=== PATIENT | female | born 1980 | race Two or more races ===

== ENCOUNTER 2016-11-14 11:10 | Inpatient (IN) | payer MEDICAID ==
[~2016-11-14] VITALS: Ht 154.9 cm; Wt 113.9 kg
[2016-11-14] VITALS (19 sets, daily range): BP systolic 84–127; BP diastolic 42–76
[2016-11-14 12:25] LABS: DEFINITIVE VIEW TRANSMISSION; Hemoglobin 11.9 g/dL (12.2-16.2); Mean Corpuscular Hemoglobin 26.4 pg (28.0-32.0); Mean Corpuscular Hgb Conc. 32.2 g/dL (32.0-36.0); Mean Corpuscular Volume 82.2 fL (80.0-100.0); Mean Platelet Volume 7.8 fL (7.4-10.4); Platelet Count (auto) 405 10^3/uL (140-450); Red Cell Distribution Width 14.7 % (11.6-16.0); SUSPECT VIEW TRANSMISSION; White Blood Cell 26.5 10^3/uL (4.4-10.8)
[2016-11-14 12:39] LABS: Metamyelocytes % 0; Myelocytes % 0; Promyelocytes % 0; Reactive Lymphocytes 0
[2016-11-14 12:39] LABS: Urine Bilirubin Negative (Negative); Urine Blood Negative /uL (Negative); Urine Color Yellow (Yellow); Urine Glucose Normal (Normal); Urine Hyaline Cast FEW /lpf (0 - 2); Urine Ketone Negative (Negative); Urine Mucus FEW (None Seen); Urine Nitrite Negative (Negative); Urine RBC 2 /hpf (0 - 4); Urine Squamous Epithelial Cell FEW /hpf (<5); Urine Urobilinogen Normal (Negative)
[2016-11-14 12:42] LABS: Albumin 3.4 g/dL (3.4-5.0); BUN/Creatinine Ratio 10.2; Bilirubin, Total 0.9 mg/dL (0.2-1.0); Calcium 8.4 mg/dL (8.5-10.1); Total Protein 8.1 g/dL (6.4-8.2)
[2016-11-14 12:46] LABS: Potassium 2.9 mmol/L (3.5-5.1)
[2016-11-14] MEDS ORDERED: SODIUM CHLORIDE 0.9% 1,000 ML IVB ONE (12:54)
[2016-11-14] MEDS ORDERED: PANTOPRAZOLE SODIUM 40 MG/10 ML VIAL IV ONE (13:00)
[2016-11-14] MEDS ORDERED: HYDROmorphone HCL 2 MG/ML VL IV ONE (13:00)
[2016-11-14] MEDS ORDERED: cefTRIAXone 1GM/50ML D5W 50 ML IV ONE (13:00)
[2016-11-14] MEDS ORDERED: POTASSIUM CHL 10% (20 MEQ/15ML) ORAL SOLN PO ONE (13:00)
[2016-11-14] MEDS ORDERED: LEVOFLOXACIN 750MG 150 ML IV ONE (13:00)
[2016-11-14] MEDS ORDERED: ONDANSETRON HCL 4 MG/2 ML VIAL IV ONE (13:00)
[2016-11-14 13:52] LABS: Magnesium 1.5 mg/dL (1.6-2.6)
[2016-11-14 14:03] LABS: B-Type Natriuretic Peptide 34.51 pg/mL (0-100)
[2016-11-14 14:11] LABS: Platelet Estimate Adequate
[2016-11-14 14:19] LABS: Temperature: 22.4 C (20.0-25.0)
[2016-11-14 14:26] LABS: REFLEX LACTIC ACID YES OR NO YES
[2016-11-14] MEDS ORDERED: IOHEXOL 300 MG/ML 100ML BOTTLE IJ ONE (15:06)
[2016-11-14] MEDS ORDERED: SODIUM CHLORIDE 0.9% 1,000 ML IV SCH (15:17)
[2016-11-14] MEDS ORDERED: MORPHINE SULF INJ 2 MG/ML SYRINGE 1ML IV PRN (15:30)
[2016-11-14] MEDS ORDERED: ALBUTEROL SULF 2.5 MG/0.5ML(0.5%) NEB SOLN NEB PRN (15:30)
[2016-11-14] MEDS ORDERED: LORazepam 0.5 MG TAB PO PRN (15:30)
[2016-11-14] MEDS ORDERED: OSELTAMIVIR 75 MG CAP PO ONE (15:30)
[2016-11-14] MEDS ORDERED: TEMAZEPAM 15 MG CAP PO PRN (15:30)
[2016-11-14] MEDS ORDERED: DEXTROSE (50%) 50ML SYRG IV PRN (15:30)
[2016-11-14] MEDS ORDERED: LACTULOSE 20Gm/30ML SOLN PO PRN (15:30)
[2016-11-14] MEDS ORDERED: NITROGLYCERIN 0.4 MG SL TAB SL PRN (15:30)
[2016-11-14] MEDS ORDERED: ACETAMINOPHEN 500 MG TAB PO PRN (15:30)
[2016-11-14] MEDS ORDERED: POTASSIUM CHL 20 Meq TABLET PO ONE (15:45)
[2016-11-14] MEDS: CLINDAMYCIN 600MG IV 50 ML IV SCH ×2 (15:59→21:45)
[2016-11-14] MEDS ORDERED: ENOXAPARIN SOD 40 MG/0.4 ML SYRINGE SC SCH (15:59)
[2016-11-14 16:08] LABS: INR 1.09 (0.9-1.15); Partial Thromboplastin Time 27.3 sec (22.64-33.71); Prothrombin Time 11.2 sec (9.37-12.3)
[2016-11-14] MEDS: SOD CHL 0.9%/ KCL 20MEQ 1,000 ML IV SCH (16:17)
[2016-11-14] MEDS: MORPHINE SULF INJ 2 MG/ML SYRINGE 1ML IV PRN ×3 (16:33→23:10)
[2016-11-14] MEDS: PROMETHAZINE HCL 25 MG/ML 1ML IV PRN (16:33)
[2016-11-14] MEDS: ACCU-CHEK COMFORT CURVE STRIP VI SCH (18:00)
[2016-11-14] MEDS ORDERED: SODIUM CHLORIDE 0.9% 1,000 ML IV ONE (18:30)
[2016-11-14 18:52] LABS: Lactic Acid 2.4 mmol/L (0.4-2.0)
[2016-11-14] MEDS: AZITHROMYCIN 500MG/D5W 250ML 250 ML IV SCH (18:53)
[2016-11-14 18:55] LABS: REFLEX LACTIC ACID YES OR NO NO
[2016-11-14] MEDS: ALBUTEROL SULF 2.5 MG/0.5ML(0.5%) NEB SOLN NEB SCH (18:57)
[2016-11-14] MEDS: IPRATROPIUM BROM 0.5 MG/2.5ML INH SOL NEB SCH (18:57)
[2016-11-14] MEDS: NOREPINEPHRINE BITARTRATE 250 ML IV SCH (19:40)
[2016-11-14] MEDS: OSELTAMIVIR 75 MG CAP PO SCH (21:15)
[2016-11-15] VITALS (77 sets, daily range): BP systolic 79–142; BP diastolic 34–90
[2016-11-15] MEDS: ALBUTEROL SULF 2.5 MG/0.5ML(0.5%) NEB SOLN NEB SCH ×4 (00:10→18:41)
[2016-11-15] MEDS: IPRATROPIUM BROM 0.5 MG/2.5ML INH SOL NEB SCH ×4 (00:10→18:41)
[2016-11-15] MEDS: HYDROcodone-ACET 5/325MG TAB PO PRN ×3 (01:08→15:52)
[2016-11-15] MEDS: ACCU-CHEK COMFORT CURVE STRIP VI SCH ×5 (05:43→23:43)
[2016-11-15 05:57] LABS: Hematocrit 29.6 % (36.0-46.0); Hemoglobin 9.7 g/dL (12.2-16.2); Mean Corpuscular Hemoglobin 27.1 pg (28.0-32.0); Mean Corpuscular Hgb Conc. 32.7 g/dL (32.0-36.0); Mean Corpuscular Volume 82.9 fL (80.0-100.0); Mean Platelet Volume 8.1 fL (7.4-10.4); Platelet Count (auto) 340 10^3/uL (140-450); Red Cell Distribution Width 14.7 % (11.6-16.0); SUSPECT VIEW TRANSMISSION; White Blood Cell 24.3 10^3/uL (4.4-10.8)
[2016-11-15] MEDS: CLINDAMYCIN 600MG IV 50 ML IV SCH ×3 (06:00→22:34)
[2016-11-15 06:18] LABS: Albumin 2.5 g/dL (3.4-5.0); BUN/Creatinine Ratio 23.8; Bilirubin, Total 0.6 mg/dL (0.2-1.0); Potassium 3.9 mmol/L (3.5-5.1); Total Protein 6.5 g/dL (6.4-8.2)
[2016-11-15 06:32] LABS: Metamyelocytes % 0; Myelocytes % 0; Promyelocytes % 0; Reactive Lymphocytes 0
[2016-11-15] MEDS: cefTRIAXone 1GM/50ML D5W 50 ML IV SCH (09:07)
[2016-11-15] MEDS: SOD CHL 0.9%/ KCL 20MEQ 1,000 ML IV SCH ×4 (09:07→22:34)
[2016-11-15] MEDS: OSELTAMIVIR 75 MG CAP PO SCH (09:40)
[2016-11-15] MEDS: AZITHROMYCIN 500MG/D5W 250ML 250 ML IV SCH (09:40)
[2016-11-15] MEDS: ENOXAPARIN SOD 40 MG/0.4 ML SYRINGE SC SCH ×2 (09:40→22:34)
[2016-11-15 15:32] LABS: Platelet Estimate Adequate
[2016-11-15] MEDS: methylPREDNISolone SOD SUCC 40 MG/ML VL IV SCH (17:25)
[2016-11-15] MEDS: MORPHINE SULF INJ 2 MG/ML SYRINGE 1ML IV PRN (17:26)
[2016-11-15] MEDS: NOREPINEPHRINE BITARTRATE 250 ML IV SCH (18:30)
[2016-11-15] MEDS: BUDESONIDE (INHALATION) 0.5 MG/2 ML NEB NEB SCH (18:41)
[2016-11-16] MEDS: ALBUTEROL SULF 2.5 MG/0.5ML(0.5%) NEB SOLN NEB SCH ×4 (02:02→19:13)
[2016-11-16] MEDS: IPRATROPIUM BROM 0.5 MG/2.5ML INH SOL NEB SCH ×4 (02:03→19:14)
[2016-11-16] MEDS: SOD CHL 0.9%/ KCL 20MEQ 1,000 ML IV SCH ×2 (04:57→17:07)
[2016-11-16 05:00] VITALS: BP 136/82
[2016-11-16] MEDS: methylPREDNISolone SOD SUCC 40 MG/ML VL IV SCH ×2 (05:23→17:07)
[2016-11-16] MEDS: CLINDAMYCIN 600MG IV 50 ML IV SCH ×3 (05:23→21:56)
[2016-11-16] MEDS: ACCU-CHEK COMFORT CURVE STRIP VI SCH ×4 (05:30→21:56)
[2016-11-16] MEDS: HYDROcodone-ACET 5/325MG TAB PO PRN ×2 (05:33→16:51)
[2016-11-16] MEDS: BUDESONIDE (INHALATION) 0.5 MG/2 ML NEB NEB SCH ×2 (06:18→19:13)
[2016-11-16 08:00] VITALS: BP 141/101
[2016-11-16] MEDS: cefTRIAXone 1GM/50ML D5W 50 ML IV SCH (09:15)
[2016-11-16] MEDS: AZITHROMYCIN 500MG/D5W 250ML 250 ML IV SCH (09:15)
[2016-11-16] MEDS: ENOXAPARIN SOD 40 MG/0.4 ML SYRINGE SC SCH ×2 (09:15→21:56)
[2016-11-16 12:30] VITALS: BP 168/117
[2016-11-16] MEDS ORDERED: InsuLIN REG 1unit/0.01ml Soln (100units/ml) SC ONE ×2 (13:45)
[2016-11-16] MEDS ORDERED: DEXTROSE (50%) 50ML SYRG IV PRN (13:45)
[2016-11-16 15:23] VITALS: BP 135/78
[2016-11-16 17:00] VITALS: BP 129/82
[2016-11-16] MEDS: InsuLIN REG 1unit/0.01ml Soln (100units/ml) SC SCH ×2 (18:37→22:02)
[2016-11-16] MEDS: MORPHINE SULF INJ 2 MG/ML SYRINGE 1ML IV PRN (20:32)
[2016-11-16 21:03] VITALS: BP 126/81
[2016-11-17] MEDS: IPRATROPIUM BROM 0.5 MG/2.5ML INH SOL NEB SCH ×4 (00:27→18:51)
[2016-11-17] MEDS: ALBUTEROL SULF 2.5 MG/0.5ML(0.5%) NEB SOLN NEB SCH ×4 (00:27→18:51)
[2016-11-17] MEDS: SOD CHL 0.9%/ KCL 20MEQ 1,000 ML IV SCH ×3 (03:53→18:38)
[2016-11-17 05:00] VITALS: BP 141/92
[2016-11-17] MEDS: methylPREDNISolone SOD SUCC 40 MG/ML VL IV SCH ×2 (05:08→17:37)
[2016-11-17] MEDS: CLINDAMYCIN 600MG IV 50 ML IV SCH ×3 (05:56→22:00)
[2016-11-17] MEDS: MORPHINE SULF INJ 2 MG/ML SYRINGE 1ML IV PRN ×2 (05:56→21:59)
[2016-11-17] MEDS: BUDESONIDE (INHALATION) 0.5 MG/2 ML NEB NEB SCH ×2 (06:23→18:51)
[2016-11-17] MEDS: ACCU-CHEK COMFORT CURVE STRIP VI SCH ×4 (07:13→22:00)
[2016-11-17] MEDS: InsuLIN REG 1unit/0.01ml Soln (100units/ml) SC SCH ×5 (07:15→22:17)
[2016-11-17 09:00] VITALS: BP 154/87
[2016-11-17] MEDS: cefTRIAXone 1GM/50ML D5W 50 ML IV SCH (09:01)
[2016-11-17] MEDS: ENOXAPARIN SOD 40 MG/0.4 ML SYRINGE SC SCH ×2 (10:32→21:58)
[2016-11-17] MEDS: AZITHROMYCIN 500MG/D5W 250ML 250 ML IV SCH (10:32)
[2016-11-17 13:00] VITALS: BP 134/81
[2016-11-17 17:00] VITALS: BP 112/83
[2016-11-17] MEDS: HYDROcodone-ACET 5/325MG TAB PO PRN (17:36)
[2016-11-17 22:00] VITALS: BP 138/84
[2016-11-18] VITALS (7 sets, daily range): BP systolic 103–155; BP diastolic 62–105
[2016-11-18] MEDS: IPRATROPIUM BROM 0.5 MG/2.5ML INH SOL NEB SCH ×4 (00:15→19:38)
[2016-11-18] MEDS: ALBUTEROL SULF 2.5 MG/0.5ML(0.5%) NEB SOLN NEB SCH ×4 (00:15→19:38)
[2016-11-18] MEDS: SOD CHL 0.9%/ KCL 20MEQ 1,000 ML IV SCH ×3 (03:05→21:54)
[2016-11-18] MEDS: MORPHINE SULF INJ 2 MG/ML SYRINGE 1ML IV PRN ×2 (03:54→19:38)
[2016-11-18 05:38] LABS: Basophils # (auto) 0 uL; Basophils % (auto) 0.1 % (0.0-2.0); DEFINITIVE VIEW TRANSMISSION; Eosinophils # (auto) 0 uL; Eosinophils % (auto) 0.1 % (0.0-7.0); Hemoglobin 11.1 g/dL (12.2-16.2); Lymphocytes # (auto) 2.5 uL; Lymphocytes % (auto) 14.1 % (10.0-50.0); Mean Corpuscular Hemoglobin 26.2 pg (28.0-32.0); Mean Corpuscular Hgb Conc. 31.9 g/dL (32.0-36.0); Mean Corpuscular Volume 82.4 fL (80.0-100.0); Mean Platelet Volume 7.9 fL (7.4-10.4); Monocytes # (auto) 1.1 uL; Monocytes % (auto) 6.2 % (0.0-12.0); Neutrophils # (auto) 14.3 uL; Neutrophils % (auto) 79.5 % (37.0-80.0); Platelet Count (auto) 471 10^3/uL (140-450); Red Cell Distribution Width 14.7 % (11.6-16.0); SUSPECT VIEW TRANSMISSION
[2016-11-18] MEDS: methylPREDNISolone SOD SUCC 40 MG/ML VL IV SCH ×2 (05:38→16:38)
[2016-11-18] MEDS: CLINDAMYCIN 600MG IV 50 ML IV SCH ×3 (05:39→21:18)
[2016-11-18 05:52] LABS: Albumin 2.7 g/dL (3.4-5.0); Calcium 8.7 mg/dL (8.5-10.1); Potassium 4.2 mmol/L (3.5-5.1)
[2016-11-18 05:55] LABS: BUN/Creatinine Ratio 26.8
[2016-11-18 05:59] LABS: Bilirubin, Total 0.2 mg/dL (0.2-1.0); Total Protein 7.5 g/dL (6.4-8.2)
[2016-11-18] MEDS: BUDESONIDE (INHALATION) 0.5 MG/2 ML NEB NEB SCH ×2 (06:21→19:38)
[2016-11-18] MEDS: InsuLIN REG 1unit/0.01ml Soln (100units/ml) SC SCH ×4 (06:38→22:14)
[2016-11-18] MEDS: ACCU-CHEK COMFORT CURVE STRIP VI SCH ×4 (06:39→21:34)
[2016-11-18] MEDS: cefTRIAXone 1GM/50ML D5W 50 ML IV SCH (08:02)
[2016-11-18] MEDS: ENOXAPARIN SOD 40 MG/0.4 ML SYRINGE SC SCH ×2 (09:18→21:13)
[2016-11-18] MEDS: AZITHROMYCIN 500MG/D5W 250ML 250 ML IV SCH (09:19)
[2016-11-18] MEDS: HYDROcodone-ACET 5/325MG TAB PO PRN (13:36)
[2016-11-18] MEDS: PROMETHAZINE HCL 25 MG/ML 1ML IV PRN (19:39)
[2016-11-19] MEDS: ALBUTEROL SULF 2.5 MG/0.5ML(0.5%) NEB SOLN NEB SCH ×3 (00:54→11:42)
[2016-11-19] MEDS: IPRATROPIUM BROM 0.5 MG/2.5ML INH SOL NEB SCH ×3 (00:54→11:42)
[2016-11-19] MEDS: HYDROcodone-ACET 5/325MG TAB PO PRN (04:24)
[2016-11-19] MEDS: methylPREDNISolone SOD SUCC 40 MG/ML VL IV SCH (04:24)
[2016-11-19 05:00] VITALS: BP 126/72
[2016-11-19] MEDS: CLINDAMYCIN 600MG IV 50 ML IV SCH (05:13)
[2016-11-19] MEDS: SOD CHL 0.9%/ KCL 20MEQ 1,000 ML IV SCH ×2 (05:15→12:25)
[2016-11-19] MEDS: ACCU-CHEK COMFORT CURVE STRIP VI SCH ×2 (06:02→11:23)
[2016-11-19] MEDS: InsuLIN REG 1unit/0.01ml Soln (100units/ml) SC SCH ×2 (06:02→12:01)
[2016-11-19] MEDS: BUDESONIDE (INHALATION) 0.5 MG/2 ML NEB NEB SCH (06:36)
[2016-11-19 06:57] LABS: Albumin 2.9 g/dL (3.4-5.0); Calcium 8.5 mg/dL (8.5-10.1); Potassium 3.9 mmol/L (3.5-5.1)
[2016-11-19 07:02] LABS: Bilirubin, Total 0.2 mg/dL (0.2-1.0); Total Protein 7.5 g/dL (6.4-8.2)
[2016-11-19 07:03] LABS: Basophils # (auto) 0 uL; Basophils % (auto) 0.2 % (0.0-2.0); DEFINITIVE VIEW TRANSMISSION; Eosinophils # (auto) 0 uL; Eosinophils % (auto) 0.1 % (0.0-7.0); Hematocrit 36.8 % (36.0-46.0); Hemoglobin 12.1 g/dL (12.2-16.2); Lymphocytes # (auto) 3.4 uL; Lymphocytes % (auto) 19.3 % (10.0-50.0); Mean Corpuscular Hemoglobin 26.8 pg (28.0-32.0); Mean Corpuscular Hgb Conc. 32.8 g/dL (32.0-36.0); Mean Corpuscular Volume 81.8 fL (80.0-100.0); Mean Platelet Volume 7.8 fL (7.4-10.4); Monocytes # (auto) 1.4 uL; Monocytes % (auto) 7.9 % (0.0-12.0); Neutrophils # (auto) 12.6 uL; Neutrophils % (auto) 72.5 % (37.0-80.0); Platelet Count (auto) 519 10^3/uL (140-450); Red Cell Distribution Width 14.9 % (11.6-16.0); SUSPECT VIEW TRANSMISSION; White Blood Cell 17.4 10^3/uL (4.4-10.8)
[2016-11-19] MEDS: cefTRIAXone 1GM/50ML D5W 50 ML IV SCH (08:36)
[2016-11-19] MEDS: AZITHROMYCIN 500MG/D5W 250ML 250 ML IV SCH (09:26)
[2016-11-19] MEDS: ENOXAPARIN SOD 40 MG/0.4 ML SYRINGE SC SCH (09:26)
[2016-11-19 09:35] VITALS: BP 126/73
[2016-11-19 10:52] VITALS: BP 126/73
[2016-11-19 13:12] VITALS: BP 144/92
== END 2016-11-19 13:10 | disposition home or self-care (01) | DRG 720 ==
LOC: ER 11:11 → TELE 11:12 → DOU IN ICU 16:52 → TELE-WESTW 11-15 21:20
PROVIDERS: ADMIT Internal Medicine; ATTEND Internal Medicine
DX: A41.9 Sepsis, unspecified organism (principal); N17.0 Acute kidney failure with tubular necrosis; J18.9 Pneumonia, unspecified organism; N39.0 Urinary tract infection, site not specified; Z68.42 Body mass index [BMI] 45.0-49.9, adult; E86.0 Dehydration; D64.9 Anemia, unspecified; Z83.3 Family history of diabetes mellitus; F15.90 Other stimulant use, unspecified, uncomplicated; E66.01 Morbid (severe) obesity due to excess calories; E87.6 Hypokalemia; R73.9 Hyperglycemia, unspecified
CPT/HCPCS: 36415; 71010; 71020; 71260; 74176; 80053; 81001; 82150; 82962; 83036; 83605; 83690; 83735; 83880; 84132; 84484; 85007; 85025; 85027; 85049; 85610; 85730; 87040; 87070; 87081; 87086; 87205; 87400; 93005; 94640; 99291; C9113; G0434; J0696; J1815; J1956; J2405; J3490

== ENCOUNTER 2019-06-25 14:51 | Emergency (ER) | payer MEDICAID ==
[~2019-06-25] VITALS: Ht 154.9 cm; Wt 108.9 kg
[2019-06-25 15:26] VITALS: BP 150/105
[2019-06-25] MEDS ORDERED: LORazepam 0.5 MG TAB PO ONE (15:30)
[2019-06-25 15:45] LABS: Basophils # (auto) 0 uL; Basophils % (auto) 0.4 % (0.0-2.0); Eosinophils # (auto) 0.1 uL; Eosinophils % (auto) 0.8 % (0.0-7.0); Hematocrit 42.5 % (36.0-46.0); Hemoglobin 14.3 g/dL (12.2-16.2); Lymphocytes # (auto) 2.1 uL; Lymphocytes % (auto) 24.5 % (10.0-50.0); Mean Corpuscular Hemoglobin 28.2 pg (28.0-32.0); Mean Corpuscular Hgb Conc. 33.6 g/dL (32.0-36.0); Mean Corpuscular Volume 83.8 fL (80.0-100.0); Monocytes # (auto) 0.5 uL; Monocytes % (auto) 5.6 % (0.0-12.0); Neutrophils % (auto) 68.7 % (37.0-80.0); Nucleated Red Blood Cells % 0.1 %; Platelet Count (auto) 341 10^3/uL (140-450); Red Blood Cells 5.07 10^6/uL (4.0-5.20); Red Cell Distribution Width 14.6 % (11.8-14.3); White Blood Cell 8.8 10^3/uL (4.4-10.8)
[2019-06-25 16:13] LABS: Albumin 4.1 g/dL (3.4-5.0); BUN/Creatinine Ratio 13.4; Calcium 9.6 mg/dL (8.5-10.1); Potassium 3.7 mmol/L (3.5-5.1)
[2019-06-25 16:25] LABS: Bilirubin, Total 0.6 mg/dL (0.2-1.0); Total Protein 8.7 g/dL (6.4-8.2)
== END 2019-06-25 18:58 | disposition left against medical advice (07) ==
LOC: ER 14:53
DX: F41.9 Anxiety disorder, unspecified (principal); F15.10 Other stimulant abuse, uncomplicated
CPT/HCPCS: 36415; 80053; 85025

== ENCOUNTER 2020-03-15 22:02 | Emergency (ER) | payer MEDICAID ==
[~2020-03-15] VITALS: Ht 154.9 cm; Wt 104.3 kg
[2020-03-15 23:38] LABS: Basophils # (auto) 0 10 ^3/uL (0-0.2); Basophils % (auto) 0.4 % (0.0-2.0); Eosinophils # (auto) 0.1 10 ^3/uL (0-0.8); Eosinophils % (auto) 2.2 % (0.0-7.0); Hematocrit 40.9 % (36.0-46.0); Hemoglobin 13.3 g/dL (12.2-16.2); Lymphocytes # (auto) 1.3 10 ^3/uL (0.4-5.4); Lymphocytes % (auto) 23.8 % (10.0-50.0); Mean Corpuscular Hemoglobin 27.3 pg (28.0-32.0); Mean Corpuscular Hgb Conc. 32.6 g/dL (32.0-36.0); Mean Corpuscular Volume 83.6 fL (80.0-100.0); Monocytes # (auto) 0.5 10 ^3/uL (0-1.3); Neutrophils # (auto) 3.5 10 ^3/uL (1.6-8.6); Neutrophils % (auto) 64.6 % (37.0-80.0); Nucleated Red Blood Cells % 0.2 %; Platelet Count (auto) 296 10^3/uL (140-450); Red Cell Distribution Width 14.7 % (11.8-14.3); White Blood Cell 5.4 10^3/uL (4.4-10.8)
[2020-03-15 23:55] LABS: Albumin 3.4 g/dL (3.4-5.0); Calcium 8.6 mg/dL (8.5-10.1); Potassium 3.7 mmol/L (3.5-5.1)
[2020-03-15 23:58] LABS: BUN/Creatinine Ratio 9.8; Bilirubin, Total 0.2 mg/dL (0.2-1.0); CRP High Sensitivity 0.36 mg/dL (< 0.3); Total Protein 7.9 g/dL (6.4-8.2)
[2020-03-16] MEDS ORDERED: KETOROLAC TROMETH 60MG/2ML VIAL IM ONE (01:00)
[2020-03-16 01:35] VITALS: BP 116/75
== END 2020-03-16 01:35 | disposition home or self-care (01) ==
LOC: ER 22:04
DX: J09.X2 Influenza due to identified novel influenza A virus with other respiratory manifestations (principal); Z20.828 Contact with and (suspected) exposure to other viral communicable diseases
CPT/HCPCS: 36415; 36600; 71045; 80053; 82728; 82805; 83605; 85025; 86141; 87040; 87070; 87804; 87880; 93005; 96372; 99285; J1885; U0003

== ENCOUNTER → 2020-03-17 | Emergency (ER) | payer MEDICAID ==
[~2020-03-17] VITALS: Ht 154.9 cm; Wt 104.3 kg
[~2020-03-17] MED LIST: IBUPROFEN 400 MG TAB PO ONE
[2020-03-17 19:00] LABS: Basophils # (auto) 0 10 ^3/uL (0-0.2); Basophils % (auto) 0.3 % (0.0-2.0); Eosinophils # (auto) 0.1 10 ^3/uL (0-0.8); Eosinophils % (auto) 1.2 % (0.0-7.0); Hematocrit 38.9 % (36.0-46.0); Lymphocytes # (auto) 1.2 10 ^3/uL (0.4-5.4); Lymphocytes % (auto) 19.4 % (10.0-50.0); Mean Corpuscular Hemoglobin 27.8 pg (28.0-32.0); Mean Corpuscular Hgb Conc. 33.3 g/dL (32.0-36.0); Mean Corpuscular Volume 83.6 fL (80.0-100.0); Monocytes # (auto) 0.4 10 ^3/uL (0-1.3); Monocytes % (auto) 7.4 % (0.0-12.0); Neutrophils # (auto) 4.4 10 ^3/uL (1.6-8.6); Neutrophils % (auto) 71.7 % (37.0-80.0); Platelet Count (auto) 279 10^3/uL (140-450); Red Blood Cells 4.66 10^6/uL (4.0-5.20); Red Cell Distribution Width 14.9 % (11.8-14.3); White Blood Cell 6.1 10^3/uL (4.4-10.8)
[2020-03-17 19:17] LABS: INR 0.94 (0.9-1.15); Partial Thromboplastin Time 27.8 sec (23.64-32.05)
[2020-03-17 19:27] LABS: Albumin 3.2 g/dL (3.4-5.0); Anion Gap 7 (5-15); Blood Urea Nitrogen 7 mg/dL (7-18); Calcium 8.5 mg/dL (8.5-10.1); Carbon Dioxide 25 mmol/L (21-32); Chloride 104 mmol/L (98-107); Glucose 137 mg/dL (74-106); Magnesium 2.2 mg/dL (1.6-2.6); Potassium 3.6 mmol/L (3.5-5.1); Sodium 136 mmol/L (136-145)
[2020-03-17 19:30] VITALS: BP 140/90
[2020-03-17 19:33] LABS: Alanine Aminotransferase 125 U/L (13-56); Alkaline Phosphatase 203 U/L (45-117); Aspartate Aminotransferase 53 U/L (15-37); BUN/Creatinine Ratio 11.7; Bilirubin, Total 0.2 mg/dL (0.2-1.0); GFR African American 142 mL/min; GFR Non-African American 118 mL/min; Total Protein 7.9 g/dL (6.4-8.2)
[2020-03-17 20:53] LABS: Urine Bacteria FEW /hpf (None Seen); Urine Blood Negative /uL (Negative); Urine Mucus FEW (None Seen); Urine Specific Gravity 1.014 (1.001-1.035); Urine WBC 14 /hpf (0 - 5)
[2020-03-17 20:56] LABS: Amphetamine Screen, Urine POSITIVE (NEGATIVE); Barbiturate Scree,Urine NEGATIVE (NEGATIVE); Benzodiazephine Screen, Urine NEGATIVE (NEGATIVE); Cannabinoid Screen, Urine NEGATIVE (NEGATIVE); Cocaine Screen, Urine NEGATIVE (NEGATIVE); Opiate Scree,Urine NEGATIVE (NEGATIVE); Phencyclidine Screen, Urine NEGATIVE (NEGATIVE)
== END | disposition home or self-care (01) ==
LOC: ER 17:16
DX: U07.1 COVID-19 (principal); F15.10 Other stimulant abuse, uncomplicated; K70.30 Alcoholic cirrhosis of liver without ascites; E86.0 Dehydration
CPT/HCPCS: 36415; 71045; 80053; 80307; 80320; 81001; 82728; 83735; 83880; 84484; 84702; 85025; 85379; 85610; 85730